=== PATIENT | male | born 1950 | race Caucasian/White ===

== ENCOUNTER 2017-08-05 03:29 | Inpatient (IN) | payer MEDICARE ==
[~2017-08-05] VITALS: Ht 188 cm; Wt 78.6 kg
[2017-08-05] MEDS ORDERED: MORPHINE SULFATE 4 MG/ML, 1ML ONE (03:47)
[2017-08-05] MEDS ORDERED: HEPARIN 25,000 UNITS/500ML PMX 500 ML ONE (03:50)
[2017-08-05] MEDS ORDERED: HEPARIN 5,000 UNITS/ML, 1ML ONE (03:50)
[2017-08-05] MEDS ORDERED: ASPIRIN 81 MG TABLET CHEW PO ONE (04:00)
[2017-08-05] MEDS ORDERED: HEPARIN 5,000 UNITS/ML, 1ML IV ONE (04:00)
[2017-08-05] MEDS ORDERED: MORPHINE SULFATE 4 MG/ML, 1ML IVPush PRN (04:00)
[2017-08-05] MEDS ORDERED: HEPARIN 5,000 UNITS/ML, 1ML IV PRN (04:00)
[2017-08-05] MEDS ORDERED: HEPARIN 25,000 UNITS/500ML PMX 500 ML IV PRN (04:00)
[2017-08-05] MEDS ORDERED: SODIUM CHLORIDE 0.9% 1,000ML IVBOLUS ONE (04:00)
[2017-08-05] MEDS ORDERED: FENTANYL PF 100 MCG/2ML ONE (04:09)
[2017-08-05] MEDS ORDERED: TICAGRELOR 90 MG TABLET ONE (04:09)
[2017-08-05] MEDS ORDERED: HEPARIN 1,000 UNITS/ML, 10ML ONE (04:09)
[2017-08-05] MEDS ORDERED: NITROGLYCERIN 5 MG/ML, 10ML ONE (04:09)
[2017-08-05] MEDS ORDERED: BIVALIRUDIN 250 MG ONE (04:09)
[2017-08-05] MEDS ORDERED: VERAPAMIL 2.5 MG/ML, 2ML ONE (04:09)
[2017-08-05] MEDS ORDERED: MIDAZOLAM 1 MG/ML, 5ML ONE (04:09)
[2017-08-05] MEDS ORDERED: LIDOCAINE 2%, 2ML ONE (04:10)
[2017-08-05 04:18] LABS: BASOPHILS # (AUTO) 0.05 x10^3/uL (0-0.1); BASOPHILS % (AUTO) 0 % (0-1); EOSINOPHILS # (AUTO) 0.37 x10^3/uL (0-0.4); EOSINOPHILS % (AUTO) 3 % (1-7); LYMPHOCYTES # (AUTO) 1.93 x10^3/uL (1-3.4); LYMPHOCYTES % (AUTO) 15 % (22-44); MD NO; MEAN CORPUSCULAR HEMOGLOBIN 29.9 pg (27.5-34.5); MEAN CORPUSCULAR HGB CONC 33.3 g/dL (33.2-36.2); MEAN CORPUSCULAR VOLUME 89.6 fL (81-97); MEAN PLATELET VOLUME 7.6 fL (7.4-10.4); MONOCYTES # (AUTO) 0.97 x10^3/uL (0.2-0.8); MONOCYTES % (AUTO) 8 % (2-9); NEUTROPHILS # (AUTO) 9.62 x10^3/uL (1.8-6.8); NEUTROPHILS % (AUTO) 74 % (42-75); PLATELET COUNT 229 x10^3/uL (130-400); RED BLOOD COUNT 4.91 x10^6/uL (4.38-5.82)
[2017-08-05 04:27] LABS: ALBUMIN 3.5 g/dL (3.4-5.0); ANION GAP 5 mmol/L (5-15); CALCIUM 8.9 mg/dL (8.5-10.1); CHLORIDE 109 mmol/L (98-107); CREATININE 1.62 mg/dL (0.7-1.3)
[2017-08-05 04:30] LABS: TROPONIN I 0.112 ng/mL (0.000-0.045)
[2017-08-05] MEDS ORDERED: ASPIRIN 81 MG TABLET CHEW ONE (04:30)
[2017-08-05 04:35] LABS: INTERNATIONAL NORMALIZED RATIO 0.94 (0.93-1.1); PROTHROMBIN TIME 9.8 Seconds (9.6-11.5)
[2017-08-05 05:40] VITALS: BP 149/90
[2017-08-05] MEDS: ASPIRIN 81 MG TABLET EC PO SCH (06:00)
[2017-08-05] MEDS ORDERED: BIVALIRUDIN 250 MG in DEXTROSE 5% 50 ML IV SCH (07:00)
[2017-08-05] MEDS ORDERED: SODIUM CHLORIDE 0.9% 1,000 ML IV SCH (07:00)
[2017-08-05] MEDS ORDERED: BISACODYL 10 MG SUPP PR PRN (07:30)
[2017-08-05] MEDS ORDERED: ONDANSETRON 2MG/ML, 2ML IV PRN (07:30)
[2017-08-05] MEDS ORDERED: ZOLPIDEM 5MG TABLET PO PRN (07:30)
[2017-08-05] MEDS ORDERED: BISACODYL 5 MG EC TABLET PO PRN (07:30)
[2017-08-05] MEDS ORDERED: ACETAMINOPHEN 325 MG TABLET PO PRN (07:30)
[2017-08-05] MEDS: TICAGRELOR 90 MG TABLET PO SCH ×2 (08:20→21:26)
[2017-08-05] MEDS: MAGNESIUM OXIDE 400 MG TABLET PO SCH (08:20)
[2017-08-05] MEDS: METOPROLOL TARTRATE 25 MG TABLET PO SCH ×2 (08:20→17:45)
[2017-08-05 08:21] LABS: CHOL/HDL RATIO 4.5; LDL/HDL RATIO 2.6 (0.5-3.0)
[2017-08-05] MEDS: ATORVASTATIN 40 MG TABLET PO SCH (21:26)
[2017-08-06 04:00] VITALS: BP 140/82
[2017-08-06 04:22] LABS: ALBUMIN 2.8 g/dL (3.4-5.0); ANION GAP 6 mmol/L (5-15); CHLORIDE 113 mmol/L (98-107); CREATININE 1.23 mg/dL (0.7-1.3)
[2017-08-06] MEDS: METOPROLOL TARTRATE 25 MG TABLET PO SCH (06:00)
[2017-08-06] MEDS: ASPIRIN 81 MG TABLET EC PO SCH (06:15)
[2017-08-06] MEDS: MAGNESIUM OXIDE 400 MG TABLET PO SCH (08:02)
[2017-08-06] MEDS: TICAGRELOR 90 MG TABLET PO SCH ×2 (08:02→19:59)
[2017-08-06] MEDS: NICOTINE 21 MG/24 HR PATCH.TD24 TD SCH (08:30)
[2017-08-06] MEDS ORDERED: LISINOPRIL 5 MG TABLET PO SCH (09:00)
[2017-08-06 09:15] VITALS: BP 124/84
[2017-08-06 11:01] VITALS: BP 126/84
[2017-08-06 13:41] VITALS: BP 125/83
[2017-08-06] MEDS: CARVEDILOL 6.25 MG TABLET PO SCH (17:13)
[2017-08-06 19:00] VITALS: BP 98/57
[2017-08-06 19:31] VITALS: BP 115/73
[2017-08-06] MEDS: ATORVASTATIN 40 MG TABLET PO SCH (19:59)
[2017-08-06] MEDS: LISINOPRIL 5 MG TABLET PO SCH (19:59)
[2017-08-07 00:41] VITALS: BP 122/77
[2017-08-07] MEDS: ASPIRIN 81 MG TABLET EC PO SCH (06:10)
[2017-08-07] MEDS: CARVEDILOL 6.25 MG TABLET PO SCH (06:10)
[2017-08-07 07:05] VITALS: BP 124/85
[2017-08-07] MEDS: MAGNESIUM OXIDE 400 MG TABLET PO SCH (08:28)
[2017-08-07] MEDS: TICAGRELOR 90 MG TABLET PO SCH (08:28)
[2017-08-07] MEDS: NICOTINE 21 MG/24 HR PATCH.TD24 TD SCH (08:29)
[2017-08-07] MEDS: LISINOPRIL 5 MG TABLET PO SCH (08:29)
[2017-08-07] MEDS ORDERED: NITR0.4T28 SL (08:38)
[2017-08-07] MEDS ORDERED: ASPI-621 PO (08:38)
[2017-08-07] MEDS ORDERED: LISI5TAB7 PO (08:38)
[2017-08-07] MEDS ORDERED: TICA90TA PO (08:38)
[2017-08-07] MEDS ORDERED: ATOR40TA78 PO (08:38)
[2017-08-07] MEDS ORDERED: ACET325T14 PO (08:38)
[2017-08-07] MEDS ORDERED: CARV6.2512 PO (08:38)
[2017-08-07 08:57] VITALS: BP 108/70
== END 2017-08-07 10:35 | disposition home or self-care (01) | DRG 248 ==
LOC: ED 04:11 → CCU 06:23 → 5SO 08-06 09:08 → DCLOUNGE 08-07 09:56
PROVIDERS: ADMIT Internal Medicine Cardiovascular Disease; ATTEND Internal Medicine Cardiovascular Disease
PROC: 02703EZ Dilation of Coronary Artery, One Artery with Two Intraluminal Devices, Percutaneous Approach (ICD-10-PCS; principal; 2017-08-05)
PROC: 4A023N7 Measurement of Cardiac Sampling and Pressure, Left Heart, Percutaneous Approach (ICD-10-PCS; 2017-08-05)
PROC: B2111ZZ Fluoroscopy of Multiple Coronary Arteries using Low Osmolar Contrast (ICD-10-PCS; 2017-08-05)
PROC: 3E03317 Introduction of Other Thrombolytic into Peripheral Vein, Percutaneous Approach (ICD-10-PCS; 2017-08-05)
DX: I21.19 ST elevation (STEMI) myocardial infarction involving other coronary artery of inferior wall (principal); N17.0 Acute kidney failure with tubular necrosis; I47.2 Ventricular tachycardia; I25.10 Atherosclerotic heart disease of native coronary artery without angina pectoris; I73.9 Peripheral vascular disease, unspecified; E78.5 Hyperlipidemia, unspecified; I25.5 Ischemic cardiomyopathy; F15.10 Other stimulant abuse, uncomplicated; F17.200 Nicotine dependence, unspecified, uncomplicated; Z79.82 Long term (current) use of aspirin
CPT/HCPCS: 36415; 71045; 80047; 80048; 80061; 82040; 83735; 84484; 85025; 85520; 85610; 85730; 87081; 93005; 93306; 93458; 96365; 96375; 99156; 99157; C1769; C1876; C1894; J0583; J1644; J2250; J3010; J3490; C1725; C1887; J7030; Q9967

== ENCOUNTER 2018-02-23 11:49 | Emergency (ER) | payer MEDICARE ==
[~2018-02-23] VITALS: Ht 188 cm; Wt 79.7 kg
[~2018-02-23 11:49] MED LIST: ACET325T14 PO; ASPI81TA45 PO; ATOR40TA78 PO; CARV6.2512 PO; LISI5TAB7 PO; NITR0.4T28 SL; TICA90TA PO
[2018-02-23] MEDS ORDERED: HYDROcodone/APAP 5/325 TABLET ONE (12:58)
[2018-02-23] MEDS ORDERED: HYDROcodone/APAP 5/325 TABLET PO ONE (13:00)
[2018-02-23 13:05] LABS: RAPID INFLUENZA A Negative (Negative); RAPID INFLUENZA B Negative (Negative)
[2018-02-23] MEDS ORDERED: ONDANSETRON ODT 4 MG ONE (13:06)
[2018-02-23] MEDS ORDERED: ONDANSETRON ODT 4 MG PO ONE (13:30)
[2018-02-23 14:12] VITALS: BP 98/68
== END 2018-02-23 14:14 | disposition home or self-care (01) ==
LOC: ED 14:07
DX: B34.9 Viral infection, unspecified (principal); I25.2 Old myocardial infarction; F17.200 Nicotine dependence, unspecified, uncomplicated
CPT/HCPCS: 71045; 87400; 99284